=== PATIENT | female | born 2000 | race Caucasian/White ===

== ENCOUNTER 2019-11-28 18:58 | Emergency (ER) | payer SELFPAY ==
[~2019-11-28] VITALS: Ht 157.5 cm; Wt 45.5 kg
[2019-11-28 19:27] VITALS: BP 129/63; PULSE 77; TEMP 97.8
== END 2019-11-28 20:52 | disposition left against medical advice (07) ==
LOC: COL.ER 18:58
DX: K03.81 Cracked tooth (principal)

== ENCOUNTER 2020-03-29 20:38 | Emergency (ER) | payer SELFPAY ==
[~2020-03-29] VITALS: Ht 154.9 cm; Wt 44.5 kg
[2020-03-29 20:55] VITALS: TEMP 98.3
[2020-03-29] MEDS ORDERED: AMOXICILLIN 8751 TAB PO (21:15)
[2020-03-29] MEDS ORDERED: NORCO 325 MG-51 TAB PO (21:15)
[2020-03-29 21:40] VITALS: BP 112/70; PULSE 65
== END 2020-03-29 21:40 | disposition home or self-care (01) ==
LOC: COL.ER 20:38
DX: K02.9 Dental caries, unspecified (principal); J45.909 Unspecified asthma, uncomplicated

== ENCOUNTER 2020-05-09 16:09 | Emergency (ER) | payer SELFPAY ==
[~2020-05-09] VITALS: Ht 154.9 cm; Wt 44.5 kg
[~2020-05-09 16:09] MED LIST: AMOXICILLIN 8751 TAB PO; NORCO 325 MG-51 TAB PO
[2020-05-09 16:16] VITALS: TEMP 98.9
[2020-05-09 16:38] LABS: COLLECTION METHOD CLEAN CATCH
[2020-05-09 16:43] LABS: PH 8 (5-8); SQUAMOUS EPITHELIAL 0-2 /hpf; URINE APPEARANCE Clear; URINE BACTERIA None Seen /hpf; URINE BILIRUBIN Negative (NEGATIVE); URINE BLOOD Negative (NEGATIVE); URINE COLOR Straw; URINE GLUCOSE Negative (NEGATIVE); URINE KETONE Negative (NEGATIVE); URINE LEUKOCYTE ESTERASE Negative (NEGATIVE); URINE NITRATE Negative (NEGATIVE); URINE PROTEIN(semi-quant) Negative (NEGATIVE); URINE RBC 0-2 /hpf; URINE UROBILINOGEN Negative (NEGATIVE)
[2020-05-09 17:23] LABS: BASO # 0.1 (0.0-0.2); BASO % 0.8 % (0.0-2.0); EOS # 0.1 (0.0-0.7); EOS % 1.2 % (0-4.0); HEMATOCRIT 41.6 % (37.0-47.0); HEMOGLOBIN 14.5 g/dl (12.5-16.0); LYMPH # 2.2 (1.2-3.4); LYMPH % 24.2 % (20.0-51.0); MEAN CELL VOLUME 86 fl (80.0-100.0); MEAN CORPUSCULAR HEMOGLOBIN 30 pg (27.0-31.0); MEAN CORPUSCULAR HGB CONC 35 g/dl (33.0-37.0); MEAN PLATELET VOLUME 9.4 fl (7.4-10.4); MONO # 0.7 (0.1-0.6); MONO % 7.6 % (1.7-9.3); PLATELET COUNT 232 K/mm3 (130-400); RED BLOOD COUNT 4.83 M/mm3 (4.10-5.30); REDCELL DISTRIBUTION WIDTH-CV 13.2 % (11.5-14.5)
[2020-05-09 17:39] LABS: ALANINE AMINOTRANSFERASE 23 U/L (4-34); ALKALINE PHOSPHATASE 70 U/L (50-136); ANION GAP 11 mmol/L (7-16); AST,SGOT 36 U/L (15-37); BILIRUBIN,TOTAL 0.9 mg/dL (0.0-1.0); BLOOD UREA NITROGEN 10 mg/dL (7-17); CARBON DIOXIDE 27 mmol/L (22-30); CHLORIDE 102 mmol/L (98-107); CREATININE, serum 0.89 (0.52-1.25); GLUCOSE 96 mg/dL (74-106); LIPASE 22 U/L (23-300); POTASSIUM 3.8 mmol/L (3.4-5.0); SODIUM 139 mmol/L (137-145); TOTAL PROTEIN 8.6 gm/dL (6.4-8.2)
[2020-05-09 17:42] LABS: C-REACTIVE PROTEIN < 0.5 mg/dL (0.0-0.9)
[2020-05-09 19:45] VITALS: BP 109/69; PULSE 58
[2020-05-09] MEDS ORDERED: ZITHROMAX500 M2 PO (21:04)
== END 2020-05-09 19:45 | disposition home or self-care (01) ==
LOC: COL.ER 16:09
PROVIDERS: Emergency Medicine; Nurse Practitioner Primary Care
DX: A74.9 Chlamydial infection, unspecified (principal); R10.9 Unspecified abdominal pain; Z32.02 Encounter for pregnancy test, result negative; Z83.79 Family history of other diseases of the digestive system; Z80.41 Family history of malignant neoplasm of ovary; Z84.1 Family history of disorders of kidney and ureter; Z88.0 Allergy status to penicillin
CPT/HCPCS: J1885; J7030; Q9967

== ENCOUNTER 2020-07-16 11:25 | Emergency (ER) | payer MEDICAID ==
[~2020-07-16] VITALS: Ht 154.9 cm; Wt 45.0 kg
[~2020-07-16 11:25] MED LIST changes: +CEPHALEXIN500 M1 PO; +FLAGYL500 MG PO; +ZITHROMAX500 M2 PO
[2020-07-16 12:05] LABS: COLLECTION METHOD CLEAN CATCH
[2020-07-16 12:16] LABS: MUCOUS Present /lpf; PH 6 (5-8); URINE APPEARANCE Hazy; URINE BACTERIA None Seen /hpf; URINE BILIRUBIN Negative (NEGATIVE); URINE BLOOD Negative (NEGATIVE); URINE COLOR Yellow; URINE GLUCOSE Negative (NEGATIVE); URINE KETONE Trace (NEGATIVE); URINE LEUKOCYTE ESTERASE 3+ (NEGATIVE); URINE NITRATE Negative (NEGATIVE); URINE PROTEIN(semi-quant) Negative (NEGATIVE); URINE UROBILINOGEN Negative (NEGATIVE)
[2020-07-16 12:19] LABS: BASO % 0.5 % (0.0-2.0); EOS # 0.1 (0.0-0.7); EOS % 0.6 % (0-4.0); GRAN # 5.8 (1.4-6.5); GRAN % 73.1 % (42.2-75.2); HEMATOCRIT 38.7 % (37.0-47.0); HEMOGLOBIN 13.7 g/dl (12.5-16.0); LYMPH # 1.4 (1.2-3.4); LYMPH % 17.9 % (20.0-51.0); MEAN CELL VOLUME 85 fl (80.0-100.0); MEAN CORPUSCULAR HEMOGLOBIN 30 pg (27.0-31.0); MEAN CORPUSCULAR HGB CONC 35 g/dl (33.0-37.0); MEAN PLATELET VOLUME 9.3 fl (7.4-10.4); MONO # 0.6 (0.1-0.6); MONO % 7.6 % (1.7-9.3); PLATELET COUNT 202 K/mm3 (130-400); RED BLOOD COUNT 4.56 M/mm3 (4.10-5.30); REDCELL DISTRIBUTION WIDTH-CV 12.4 % (11.5-14.5)
[2020-07-16 12:34] LABS: ALBUMIN 4.5 gm/dL (3.5-5.0); BILIRUBIN,TOTAL 0.5 mg/dL (0.0-1.0); CALCIUM 10.3 mg/dL (8.4-10.2); CREATININE, serum 0.75 (0.52-1.25); POTASSIUM 4.1 mmol/L (3.4-5.0); TOTAL PROTEIN 7.2 gm/dL (6.4-8.2)
[2020-07-16 14:08] LABS: COLLECTION METHOD CLEAN CATCH
[2020-07-16 14:16] LABS: MUCOUS Present /lpf; PH 5 (5-8); SQUAMOUS EPITHELIAL 0-2 /hpf; URINE APPEARANCE Clear; URINE BACTERIA None Seen /hpf; URINE BILIRUBIN Negative (NEGATIVE); URINE BLOOD Negative (NEGATIVE); URINE COLOR Yellow; URINE GLUCOSE Negative (NEGATIVE); URINE KETONE 2+ (NEGATIVE); URINE LEUKOCYTE ESTERASE Trace (NEGATIVE); URINE NITRATE Negative (NEGATIVE); URINE PROTEIN(semi-quant) Negative (NEGATIVE); URINE RBC 0-2 /hpf; URINE UROBILINOGEN Negative (NEGATIVE)
[2020-07-16] MEDS ORDERED: CLOTRIMAZOLE 32% VG (15:08)
[2020-07-16] MEDS ORDERED: CLEOCIN HCL300 MG PO (15:08)
[2020-07-16 15:14] VITALS: BP 110/62; PULSE 76; TEMP 98.2
== END 2020-07-16 15:07 | disposition home or self-care (01) ==
LOC: COL.ER 11:25
PROVIDERS: Emergency Medicine; Physician Assistant
DX: O26.891 Other specified pregnancy related conditions, first trimester (principal); O23.591 Infection of other part of genital tract in pregnancy, first trimester; R10.2 Pelvic and perineal pain; B37.3 Candidiasis of vulva and vagina; Z3A.01 Less than 8 weeks gestation of pregnancy; Z88.0 Allergy status to penicillin

== ENCOUNTER 2020-08-16 20:58 | Emergency (ER) | payer MEDICAID ==
[~2020-08-16] VITALS: Ht 154.9 cm; Wt 40.9 kg
[~2020-08-16 20:58] MED LIST changes: +CLEOCIN HCL300 MG PO; +CLOTRIMAZOLE 32% VG
[2020-08-16 21:01] VITALS: BP 119/79; TEMP 98.4
[2020-08-16 21:24] LABS: BASO % 0.4 % (0.0-2.0); EOS # 0.1 (0.0-0.7); EOS % 0.9 % (0-4.0); GRAN # 6.2 (1.4-6.5); GRAN % 67.3 % (42.2-75.2); HEMOGLOBIN 13.5 g/dl (12.5-16.0); LYMPH # 2.1 (1.2-3.4); LYMPH % 22.5 % (20.0-51.0); MEAN CELL VOLUME 84 fl (80.0-100.0); MEAN CORPUSCULAR HEMOGLOBIN 30 pg (27.0-31.0); MEAN CORPUSCULAR HGB CONC 36 g/dl (33.0-37.0); MEAN PLATELET VOLUME 9.1 fl (7.4-10.4); MONO # 0.8 (0.1-0.6); MONO % 8.6 % (1.7-9.3); PLATELET COUNT 203 K/mm3 (130-400); RED BLOOD COUNT 4.51 M/mm3 (4.10-5.30); REDCELL DISTRIBUTION WIDTH-CV 12.5 % (11.5-14.5)
[2020-08-16 21:35] LABS: ALBUMIN 4.7 gm/dL (3.5-5.0); BILIRUBIN,TOTAL 0.7 mg/dL (0.0-1.0); CALCIUM 9.9 mg/dL (8.4-10.2); CREATININE, serum 0.78 (0.52-1.25); POTASSIUM 3.5 mmol/L (3.4-5.0); TOTAL PROTEIN 7.4 gm/dL (6.4-8.2)
[2020-08-16 23:01] LABS: COLLECTION METHOD CLEAN CATCH
[2020-08-16 23:16] LABS: MUCOUS Present /lpf; PH 5 (5-8); URINE APPEARANCE Hazy; URINE BACTERIA Rare /hpf; URINE BILIRUBIN Negative (NEGATIVE); URINE BLOOD Negative (NEGATIVE); URINE COLOR Amber; URINE GLUCOSE Negative (NEGATIVE); URINE KETONE 2+ (NEGATIVE); URINE LEUKOCYTE ESTERASE Trace (NEGATIVE); URINE NITRATE Negative (NEGATIVE); URINE PROTEIN(semi-quant) Negative (NEGATIVE); URINE RBC 0-2 /hpf
[2020-08-16] MEDS ORDERED: CEFTIN 250250 MG/TAB PO (23:52)
[2020-08-17 00:01] VITALS: PULSE 77
== END 2020-08-17 00:01 | disposition home or self-care (01) ==
LOC: COL.ER 20:58
PROVIDERS: Nurse Practitioner
DX: O03.9 Complete or unspecified spontaneous abortion without complication (principal); O26.891 Other specified pregnancy related conditions, first trimester; R10.2 Pelvic and perineal pain; Z3A.10 10 weeks gestation of pregnancy; Z88.0 Allergy status to penicillin
CPT/HCPCS: J2270; J2550; J7030

== ENCOUNTER 2020-09-13 20:31 | Emergency (ER) | payer MEDICAID ==
[~2020-09-13] VITALS: Ht 152.4 cm; Wt 40.9 kg
[~2020-09-13 20:31] MED LIST changes: +CEFTIN 250250 MG/TAB PO
[2020-09-13 21:10] VITALS: TEMP 98.6
[2020-09-13 22:31] LABS: BASO % 0.2 % (0.0-2.0); EOS # 0.2 (0.0-0.7); GRAN # 5.7 (1.4-6.5); GRAN % 63.7 % (42.2-75.2); HEMOGLOBIN 13.7 g/dl (12.5-16.0); LYMPH # 2.2 (1.2-3.4); LYMPH % 24.7 % (20.0-51.0); MEAN CELL VOLUME 85 fl (80.0-100.0); MEAN CORPUSCULAR HEMOGLOBIN 30 pg (27.0-31.0); MEAN CORPUSCULAR HGB CONC 35 g/dl (33.0-37.0); MONO # 0.8 (0.1-0.6); MONO % 9.2 % (1.7-9.3); PLATELET COUNT 222 K/mm3 (130-400); REDCELL DISTRIBUTION WIDTH-CV 13.6 % (11.5-14.5)
[2020-09-13 22:53] LABS: ALBUMIN 4.5 gm/dL (3.5-5.0); BILIRUBIN,TOTAL 0.6 mg/dL (0.0-1.0); CALCIUM 9.6 mg/dL (8.4-10.2); CREATININE, serum 0.8 (0.52-1.25); POTASSIUM 3.9 mmol/L (3.4-5.0); TOTAL PROTEIN 7.4 gm/dL (6.4-8.2)
[2020-09-14 02:50] VITALS: BP 114/73; PULSE 64
== END 2020-09-14 02:50 | disposition home or self-care (01) ==
LOC: COL.ER 20:31
PROVIDERS: Nurse Practitioner Primary Care
DX: O20.0 Threatened abortion (principal); Z3A.00 Weeks of gestation of pregnancy not specified; Z88.0 Allergy status to penicillin

== ENCOUNTER 2020-10-13 19:09 | Emergency (ER) | payer MEDICAID ==
[~2020-10-13] VITALS: Ht 154.9 cm; Wt 40.9 kg
[2020-10-13 19:22] VITALS: TEMP 98
[2020-10-13 21:00] LABS: COLLECTION METHOD CLEAN CATCH
[2020-10-13 21:07] LABS: PH 6 (5-8); URINE APPEARANCE Hazy; URINE BACTERIA Rare /hpf; URINE BILIRUBIN Negative (NEGATIVE); URINE BLOOD Negative (NEGATIVE); URINE COLOR Straw; URINE GLUCOSE Negative (NEGATIVE); URINE KETONE Negative (NEGATIVE); URINE LEUKOCYTE ESTERASE 1+ (NEGATIVE); URINE NITRATE Negative (NEGATIVE); URINE PROTEIN(semi-quant) Negative (NEGATIVE); URINE RBC 0-2 /hpf; URINE UROBILINOGEN Negative (NEGATIVE)
[2020-10-13 21:59] LABS: BASO # 0.1 (0.0-0.2); BASO % 0.6 % (0.0-2.0); EOS # 0.1 (0.0-0.7); EOS % 1.8 % (0-4.0); GRAN # 4.3 (1.4-6.5); GRAN % 55.5 % (42.2-75.2); HEMATOCRIT 37.5 % (37.0-47.0); HEMOGLOBIN 13.3 g/dl (12.5-16.0); LYMPH # 2.6 (1.2-3.4); LYMPH % 32.8 % (20.0-51.0); MEAN CELL VOLUME 86 fl (80.0-100.0); MEAN CORPUSCULAR HEMOGLOBIN 30 pg (27.0-31.0); MEAN CORPUSCULAR HGB CONC 36 g/dl (33.0-37.0); MEAN PLATELET VOLUME 9.4 fl (7.4-10.4); MONO # 0.7 (0.1-0.6); PLATELET COUNT 207 K/mm3 (130-400); RED BLOOD COUNT 4.38 M/mm3 (4.10-5.30); REDCELL DISTRIBUTION WIDTH-CV 13.1 % (11.5-14.5)
[2020-10-13 22:20] LABS: ALANINE AMINOTRANSFERASE 10 U/L (4-34); ALBUMIN 4.5 gm/dL (3.5-5.0); ALKALINE PHOSPHATASE 55 U/L (50-136); ANION GAP 8 mmol/L (7-16); AST,SGOT 21 U/L (15-37); BILIRUBIN,TOTAL 0.4 mg/dL (0.0-1.0); BLOOD UREA NITROGEN 14 mg/dL (7-17); CALCIUM 9.7 mg/dL (8.4-10.2); CARBON DIOXIDE 24 mmol/L (22-30); CHLORIDE 105 mmol/L (98-107); GLUCOSE 99 mg/dL (74-106); SODIUM 137 mmol/L (137-145); TOTAL PROTEIN 7.6 gm/dL (6.4-8.2)
[2020-10-13 22:21] LABS: C-REACTIVE PROTEIN < 0.5 mg/dL (0.0-0.9)
[2020-10-13 23:34] VITALS: BP 115/62; PULSE 61
== END 2020-10-13 23:30 | disposition home or self-care (01) ==
LOC: COL.ER 19:09
PROVIDERS: Nurse Practitioner
DX: R10.2 Pelvic and perineal pain (principal); R10.32 Left lower quadrant pain; F17.200 Nicotine dependence, unspecified, uncomplicated; Z32.02 Encounter for pregnancy test, result negative; Z88.0 Allergy status to penicillin
CPT/HCPCS: J1885

== ENCOUNTER 2021-01-19 08:54 | Emergency (ER) | payer MEDICAID ==
[~2021-01-19] VITALS: Ht 154.9 cm; Wt 40.5 kg
[2021-01-19 09:11] VITALS: BP 128/79; TEMP 98.5
[2021-01-19 09:36] LABS: COLLECTION METHOD CLEAN CATCH
[2021-01-19 09:53] LABS: PH 7 (5-8); SQUAMOUS EPITHELIAL 0-2 /hpf; URINE APPEARANCE Clear; URINE BACTERIA None Seen /hpf; URINE BILIRUBIN Negative (NEGATIVE); URINE BLOOD Negative (NEGATIVE); URINE COLOR Yellow; URINE GLUCOSE Negative (NEGATIVE); URINE KETONE Negative (NEGATIVE); URINE LEUKOCYTE ESTERASE Negative (NEGATIVE); URINE NITRATE Negative (NEGATIVE); URINE PROTEIN(semi-quant) Negative (NEGATIVE); URINE RBC 0-2 /hpf; URINE UROBILINOGEN Negative (NEGATIVE)
[2021-01-19 11:31] VITALS: PULSE 82
[2021-07-20] MEDS ORDERED: MACROBID 1100 MG/CAP PO (13:54)
[2021-07-23] MEDS ORDERED: SEPTRA DS 8001 TAB PO (06:45)
== END 2021-01-19 11:31 | disposition home or self-care (01) ==
LOC: COL.ER 08:54
PROVIDERS: Emergency Medicine
DX: R10.32 Left lower quadrant pain (principal); Z88.0 Allergy status to penicillin

== ENCOUNTER → 2021-02-07 | Outpatient (CLI) | payer MEDICAID ==
[~2021-02-07] MED LIST changes: +CEFTIN500 MG PO; +MACROBID 1100 MG/CAP PO; +PREDNISONE20 MG PO; +PRENATAL TABLET PO; +PROMETRIUM200 M1 PO; +SEPTRA DS 8001 TAB PO
== END ==
LOC: COL.RAD 10:11
DX: N26.1 Atrophy of kidney (terminal) (principal)

== ENCOUNTER 2021-03-06 09:32 | Emergency (ER) | payer MEDICAID ==
[~2021-03-06] VITALS: Ht 152.4 cm; Wt 40.9 kg
[~2021-03-06 09:32] MED LIST changes: -CEFTIN500 MG PO; -MACROBID 1100 MG/CAP PO; -PREDNISONE20 MG PO; -PRENATAL TABLET PO; -PROMETRIUM200 M1 PO; -SEPTRA DS 8001 TAB PO
[2021-03-06 09:47] VITALS: TEMP 98.9
[2021-03-06 11:38] LABS: STREP SCREEN NEGATIVE
[2021-03-06] MEDS ORDERED: PREDNISONE20 MG PO (11:51)
[2021-03-06 11:55] VITALS: BP 126/76; PULSE 91
[2021-07-20] MEDS ORDERED: MACROBID 1100 MG/CAP PO (13:54)
[2021-07-23] MEDS ORDERED: SEPTRA DS 8001 TAB PO (06:45)
== END 2021-03-06 12:00 | disposition home or self-care (01) ==
LOC: COL.ER 09:32
PROVIDERS: Nurse Practitioner
DX: J06.9 Acute upper respiratory infection, unspecified (principal); J45.909 Unspecified asthma, uncomplicated; F17.210 Nicotine dependence, cigarettes, uncomplicated; Z20.822 Contact with and (suspected) exposure to COVID-19
CPT/HCPCS: J7512

== ENCOUNTER 2021-03-18 14:59 | Emergency (ER) | payer MEDICAID ==
[~2021-03-18] VITALS: Ht 152.4 cm; Wt 39.5 kg
[~2021-03-18 14:59] MED LIST changes: +PREDNISONE20 MG PO
[2021-03-18 15:29] VITALS: BP 106/71; PULSE 71; TEMP 98.1
[2021-07-20] MEDS ORDERED: MACROBID 1100 MG/CAP PO (13:54)
[2021-07-23] MEDS ORDERED: SEPTRA DS 8001 TAB PO (06:45)
== END 2021-03-18 16:44 | disposition left against medical advice (07) ==
LOC: COL.ER 14:59
DX: R51.9 Headache, unspecified (principal); M54.2 Cervicalgia; X58.XXXA Exposure to other specified factors, initial encounter; Y99.0 Civilian activity done for income or pay

== ENCOUNTER 2021-05-24 09:42 | Emergency (ER) | payer MEDICAID ==
[~2021-05-24] VITALS: Ht 152.4 cm; Wt 40.5 kg
[2021-05-24] MEDS ORDERED: PRENATAL TABLET PO (10:17)
[2021-05-24] MEDS ORDERED: PROMETRIUM200 M1 PO (10:17)
[2021-05-24 10:48] LABS: COLLECTION METHOD CLEAN CATCH
[2021-05-24 10:54] LABS: BASO % 0.1 % (0.0-2.0); EOS # 0.1 (0.0-0.7); EOS % 0.7 % (0-4.0); GRAN % 73.6 % (42.2-75.2); HEMOGLOBIN 12.7 g/dl (12.5-16.0); LYMPH # 1.1 (1.2-3.4); MEAN CELL VOLUME 84 fl (80.0-100.0); MEAN CORPUSCULAR HEMOGLOBIN 30 pg (27.0-31.0); MEAN CORPUSCULAR HGB CONC 36 g/dl (33.0-37.0); MEAN PLATELET VOLUME 9.2 fl (7.4-10.4); MONO # 0.7 (0.1-0.6); MONO % 9.5 % (1.7-9.3); PLATELET COUNT 192 K/mm3 (130-400); RED BLOOD COUNT 4.21 M/mm3 (4.10-5.30); REDCELL DISTRIBUTION WIDTH-CV 12.7 % (11.5-14.5)
[2021-05-24 10:56] LABS: HEMATOCRIT 35.4 % (37.0-47.0)
[2021-05-24 11:05] LABS: MUCOUS Present /lpf; PH 5 (5-8); URINE APPEARANCE Hazy; URINE BACTERIA Many /hpf; URINE BILIRUBIN Negative (NEGATIVE); URINE BLOOD Negative (NEGATIVE); URINE COLOR Yellow; URINE GLUCOSE Negative (NEGATIVE); URINE KETONE 1+ (NEGATIVE); URINE LEUKOCYTE ESTERASE 3+ (NEGATIVE); URINE NITRATE Negative (NEGATIVE); URINE PROTEIN(semi-quant) Negative (NEGATIVE); URINE UROBILINOGEN Negative (NEGATIVE)
[2021-05-24] MEDS ORDERED: CEPHALEXIN500 M1 PO (11:50)
[2021-05-24 12:35] VITALS: BP 100/53; PULSE 76
[2021-07-20] MEDS ORDERED: MACROBID 1100 MG/CAP PO (13:54)
[2021-07-23] MEDS ORDERED: SEPTRA DS 8001 TAB PO (06:45)
== END 2021-05-24 12:35 | disposition home or self-care (01) ==
LOC: COL.ER 09:42
PROVIDERS: Nurse Practitioner Primary Care
DX: O23.41 Unspecified infection of urinary tract in pregnancy, first trimester (principal); O99.511 Diseases of the respiratory system complicating pregnancy, first trimester; J45.909 Unspecified asthma, uncomplicated; Z3A.01 Less than 8 weeks gestation of pregnancy; Z87.891 Personal history of nicotine dependence
CPT/HCPCS: J7030

== ENCOUNTER 2021-06-01 11:20 | Emergency (ER) | payer MEDICAID ==
[~2021-06-01] VITALS: Ht 152.4 cm; Wt 40.0 kg
[~2021-06-01 11:20] MED LIST changes: +PRENATAL TABLET PO; +PROMETRIUM200 M1 PO
[2021-06-01 11:55] VITALS: BP 114/66; TEMP 97.5
[2021-06-01 12:50] VITALS: PULSE 102
[2021-07-20] MEDS ORDERED: MACROBID 1100 MG/CAP PO (13:54)
[2021-07-23] MEDS ORDERED: SEPTRA DS 8001 TAB PO (06:45)
== END 2021-06-01 12:51 | disposition home or self-care (01) ==
LOC: COL.ER 11:20
DX: O98.511 Other viral diseases complicating pregnancy, first trimester (principal); B34.9 Viral infection, unspecified; O99.511 Diseases of the respiratory system complicating pregnancy, first trimester; J45.909 Unspecified asthma, uncomplicated; Z20.822 Contact with and (suspected) exposure to COVID-19; Z3A.01 Less than 8 weeks gestation of pregnancy; Z87.891 Personal history of nicotine dependence

== ENCOUNTER 2021-06-23 08:14 | Emergency (ER) | payer MEDICAID ==
[~2021-06-23] VITALS: Ht 152.4 cm; Wt 40.5 kg
[2021-06-23 08:33] VITALS: TEMP 98.4
[2021-06-23 08:48] LABS: COLLECTION METHOD CLEAN CATCH
[2021-06-23 09:01] LABS: MUCOUS Present /lpf; PH 6 (5-8); SQUAMOUS EPITHELIAL 0-2 /hpf; URINE APPEARANCE Hazy; URINE BACTERIA None Seen /hpf; URINE BILIRUBIN Negative (NEGATIVE); URINE BLOOD Negative (NEGATIVE); URINE COLOR Yellow; URINE GLUCOSE Negative (NEGATIVE); URINE KETONE Negative (NEGATIVE); URINE LEUKOCYTE ESTERASE Trace (NEGATIVE); URINE NITRATE Negative (NEGATIVE); URINE PROTEIN(semi-quant) Negative (NEGATIVE); URINE UROBILINOGEN Negative (NEGATIVE)
[2021-06-23 09:12] LABS: BASO % 0.4 % (0.0-2.0); EOS # 0.2 K/mm3 (0.0-0.7); EOS % 2.3 % (0-4.0); GRAN # 5.3 K/mm3 (1.4-6.5); GRAN % 72.3 % (42.2-75.2); HEMOGLOBIN 12.8 g/dl (12.5-16.0); LYMPH # 1.2 K/mm3 (1.2-3.4); LYMPH % 16.3 % (20.0-51.0); MEAN CELL VOLUME 86 fl (80.0-100.0); MEAN CORPUSCULAR HEMOGLOBIN 30 pg (27.0-31.0); MEAN CORPUSCULAR HGB CONC 35 g/dl (33.0-37.0); MEAN PLATELET VOLUME 9.1 fl (7.4-10.4); MONO # 0.6 K/mm3 (0.1-0.6); MONO % 8.4 % (1.7-9.3); PLATELET COUNT 184 K/mm3 (130-400); RED BLOOD COUNT 4.26 M/mm3 (4.10-5.30); REDCELL DISTRIBUTION WIDTH-CV 13.2 % (11.5-14.5)
[2021-06-23 09:13] LABS: HEMATOCRIT 36.5 % (37.0-47.0)
[2021-06-23 10:00] LABS: ALANINE AMINOTRANSFERASE 9 U/L (0-55); ALBUMIN 3.5 gm/dL (3.5-5.0); ALKALINE PHOSPHATASE 35 U/L (0-750); ANION GAP 6 mmol/L (7-16); AST,SGOT 15 U/L (5-34); BILIRUBIN,TOTAL 0.4 mg/dL (0.2-1.2); BLOOD UREA NITROGEN 12 mg/dL (7-19); CALCIUM 9.8 mg/dL (8.4-10.2); CARBON DIOXIDE 23 mmol/L (22-29); CHLORIDE 107 mmol/L (98-107); CREATININE, serum 0.71 mg/dL (0.57-1.11); GLUCOSE 81 mg/dL (70-99); LIPASE < 10 U/L (8-78); POTASSIUM 3.7 mmol/L (3.5-4.5); SODIUM 136 mmol/L (136-145); TOTAL PROTEIN 6.3 gm/dL (6.2-8.1)
[2021-06-23] MEDS ORDERED: CLOTRIMAZOLE 32% VG (11:46)
[2021-06-23 12:07] VITALS: BP 112/61; PULSE 62
[2021-07-20] MEDS ORDERED: MACROBID 1100 MG/CAP PO (13:54)
[2021-07-23] MEDS ORDERED: SEPTRA DS 8001 TAB PO (06:45)
== END 2021-06-23 12:14 | disposition home or self-care (01) ==
LOC: COL.ER 08:14
PROVIDERS: Emergency Medicine
DX: O98.811 Other maternal infectious and parasitic diseases complicating pregnancy, first trimester (principal); B37.9 Candidiasis, unspecified; Z3A.11 11 weeks gestation of pregnancy

== ENCOUNTER 2021-07-18 10:50 | Emergency (ER) | payer MEDICAID ==
[~2021-07-18] VITALS: Ht 152.4 cm; Wt 42.7 kg
[2021-07-18 11:05] VITALS: TEMP 98.1
[2021-07-18 11:15] LABS: COLLECTION METHOD CLEAN CATCH
[2021-07-18 11:29] LABS: MUCOUS Present /lpf; PH 6 (5-8); SQUAMOUS EPITHELIAL 0-2 /hpf; URINE APPEARANCE Clear; URINE BACTERIA None Seen /hpf; URINE BILIRUBIN Negative (NEGATIVE); URINE BLOOD Negative (NEGATIVE); URINE COLOR Yellow; URINE GLUCOSE Negative (NEGATIVE); URINE KETONE Trace (NEGATIVE); URINE LEUKOCYTE ESTERASE Trace (NEGATIVE); URINE NITRATE Negative (NEGATIVE); URINE PROTEIN(semi-quant) Negative (NEGATIVE); URINE RBC 0-2 /hpf; URINE UROBILINOGEN Negative (NEGATIVE)
[2021-07-18 11:51] LABS: BASO % 0.3 % (0.0-2.0); EOS # 0.1 K/mm3 (0.0-0.7); EOS % 0.9 % (0-4.0); GRAN # 6.8 K/mm3 (1.4-6.5); GRAN % 73.7 % (42.2-75.2); HEMOGLOBIN 12.5 g/dl (12.5-16.0); LYMPH # 1.6 K/mm3 (1.2-3.4); LYMPH % 17.8 % (20.0-51.0); MEAN CELL VOLUME 85 fl (80.0-100.0); MEAN CORPUSCULAR HEMOGLOBIN 30 pg (27.0-31.0); MEAN CORPUSCULAR HGB CONC 35 g/dl (33.0-37.0); MEAN PLATELET VOLUME 9.4 fl (7.4-10.4); MONO # 0.6 K/mm3 (0.1-0.6); PLATELET COUNT 176 K/mm3 (130-400); RED BLOOD COUNT 4.17 M/mm3 (4.10-5.30); REDCELL DISTRIBUTION WIDTH-CV 13.2 % (11.5-14.5)
[2021-07-18 11:52] LABS: HEMATOCRIT 35.5 % (37.0-47.0)
[2021-07-18 11:56] LABS: ALBUMIN 3.3 gm/dL (3.5-5.0); BILIRUBIN,TOTAL 0.4 mg/dL (0.2-1.2); CALCIUM 9.8 mg/dL (8.4-10.2); CREATININE, serum 0.74 mg/dL (0.57-1.11); POTASSIUM 3.7 mmol/L (3.5-4.5); TOTAL PROTEIN 5.8 gm/dL (6.2-8.1)
[2021-07-18] MEDS ORDERED: CEFTIN500 MG PO (12:23)
[2021-07-18 12:34] VITALS: BP 100/70; PULSE 71
[2021-07-20] MEDS ORDERED: MACROBID 1100 MG/CAP PO (13:54)
[2021-07-23] MEDS ORDERED: SEPTRA DS 8001 TAB PO (06:45)
== END 2021-07-18 12:35 | disposition home or self-care (01) ==
LOC: COL.ER 10:50
PROVIDERS: Physician Assistant
DX: O23.42 Unspecified infection of urinary tract in pregnancy, second trimester (principal); N39.0 Urinary tract infection, site not specified; Z3A.15 15 weeks gestation of pregnancy
CPT/HCPCS: J0696

== ENCOUNTER 2021-07-27 12:29 | Emergency (ER) | payer MEDICAID ==
[~2021-07-27] VITALS: Ht 152.4 cm; Wt 43.6 kg
[~2021-07-27 12:29] MED LIST changes: +CEFTIN500 MG PO; +MACROBID 1100 MG/CAP PO; +SEPTRA DS 8001 TAB PO
[2021-07-27 13:20] LABS: COLLECTION METHOD CLEAN CATCH
[2021-07-27 13:34] LABS: BASO % 0.3 % (0.0-2.0); EOS # 0.1 K/mm3 (0.0-0.7); GRAN # 7.3 K/mm3 (1.4-6.5); GRAN % 76.7 % (42.2-75.2); HEMOGLOBIN 11.8 g/dl (12.5-16.0); LYMPH # 1.5 K/mm3 (1.2-3.4); LYMPH % 15.3 % (20.0-51.0); MEAN CELL VOLUME 84 fl (80.0-100.0); MEAN CORPUSCULAR HEMOGLOBIN 30 pg (27.0-31.0); MEAN CORPUSCULAR HGB CONC 36 g/dl (33.0-37.0); MEAN PLATELET VOLUME 9.2 fl (7.4-10.4); MONO # 0.6 K/mm3 (0.1-0.6); MONO % 6.5 % (1.7-9.3); PLATELET COUNT 190 K/mm3 (130-400); RED BLOOD COUNT 3.92 M/mm3 (4.10-5.30); REDCELL DISTRIBUTION WIDTH-CV 13.1 % (11.5-14.5)
[2021-07-27 13:40] LABS: AMORPHOUS CRYSTAL Present /uL; BUDDING YEAST Present /hpf; MUCOUS Present /lpf; PH 5 (5-8); URINE APPEARANCE Turbid; URINE BACTERIA Many /hpf; URINE BILIRUBIN Negative (NEGATIVE); URINE BLOOD Negative (NEGATIVE); URINE CALCIUM OXALATE CRYSTAL Present /hpf; URINE COLOR Yellow; URINE GLUCOSE Negative (NEGATIVE); URINE KETONE Trace (NEGATIVE); URINE LEUKOCYTE ESTERASE Negative (NEGATIVE); URINE NITRATE Negative (NEGATIVE); URINE PROTEIN(semi-quant) Negative (NEGATIVE); URINE RBC None Seen /hpf
[2021-07-27 13:54] LABS: ALBUMIN 3.2 gm/dL (3.5-5.0); BILIRUBIN,TOTAL 0.3 mg/dL (0.2-1.2); CALCIUM 9.6 mg/dL (8.4-10.2); CREATININE, serum 0.7 mg/dL (0.57-1.11); POTASSIUM 3.6 mmol/L (3.5-4.5); TOTAL PROTEIN 5.5 gm/dL (6.2-8.1)
[2021-07-27 17:30] VITALS: BP 103/54; PULSE 72; TEMP 98.6
== END 2021-07-27 17:30 | disposition home or self-care (01) ==
LOC: COL.ER 12:29
PROVIDERS: Nurse Practitioner Family
DX: O23.42 Unspecified infection of urinary tract in pregnancy, second trimester (principal); N39.0 Urinary tract infection, site not specified; B37.41 Candidal cystitis and urethritis; O26.832 Pregnancy related renal disease, second trimester; Q60.0 Renal agenesis, unilateral; Z3A.16 16 weeks gestation of pregnancy
CPT/HCPCS: J2405; J7030

== ENCOUNTER 2021-08-23 08:42 | Emergency (ER) | payer MEDICAID ==
[~2021-08-23] VITALS: Ht 152.4 cm; Wt 44.5 kg
[2021-08-23 08:58] VITALS: TEMP 98
[2021-08-23 09:41] LABS: COLLECTION METHOD CLEAN CATCH
[2021-08-23 09:44] LABS: BASO % 0.4 % (0.0-2.0); EOS # 0.1 K/mm3 (0.0-0.7); GRAN % 74.7 % (42.2-75.2); HEMOGLOBIN 11.6 g/dl (12.5-16.0); LYMPH # 1.4 K/mm3 (1.2-3.4); LYMPH % 17.9 % (20.0-51.0); MEAN CELL VOLUME 89 fl (80.0-100.0); MEAN CORPUSCULAR HEMOGLOBIN 30 pg (27.0-31.0); MEAN CORPUSCULAR HGB CONC 34 g/dl (33.0-37.0); MEAN PLATELET VOLUME 9.7 fl (7.4-10.4); MONO # 0.5 K/mm3 (0.1-0.6); MONO % 5.6 % (1.7-9.3); PLATELET COUNT 185 K/mm3 (130-400); RED BLOOD COUNT 3.83 M/mm3 (4.10-5.30)
[2021-08-23 09:48] LABS: PH 6 (5-8); SQUAMOUS EPITHELIAL 0-2 /hpf (0-10); URINE APPEARANCE Clear (CLEAR/HAZY); URINE BACTERIA None Seen (NONE SEEN); URINE BILIRUBIN Negative (NEGATIVE); URINE BLOOD Negative (NEGATIVE); URINE COLOR Yellow (YELLOW); URINE GLUCOSE Negative (NEGATIVE); URINE KETONE Negative (NEGATIVE); URINE LEUKOCYTE ESTERASE Negative (NEGATIVE); URINE NITRATE Negative (NEGATIVE); URINE PROTEIN(semi-quant) Negative (NEGATIVE); URINE RBC None Seen /hpf (0-2); URINE UROBILINOGEN Negative (NEGATIVE)
[2021-08-23 09:52] LABS: HEMATOCRIT 34.1 % (37.0-47.0)
[2021-08-23 10:13] LABS: ALBUMIN 3.2 gm/dL (3.5-5.0); BILIRUBIN,TOTAL 0.5 mg/dL (0.2-1.2); CALCIUM 9.4 mg/dL (8.4-10.2); CREATININE, serum 0.76 mg/dL (0.57-1.11); POTASSIUM 3.7 mmol/L (3.5-4.5); TOTAL PROTEIN 5.9 gm/dL (6.2-8.1)
[2021-08-23 16:14] VITALS: BP 99/52; PULSE 67
== END 2021-08-23 10:57 | disposition home or self-care (01) ==
LOC: COL.ER 08:42
PROVIDERS: Personal Emergency Response Attendant
DX: O26.891 Other specified pregnancy related conditions, first trimester (principal); R10.32 Left lower quadrant pain; O26.831 Pregnancy related renal disease, first trimester; Q60.0 Renal agenesis, unilateral; Z87.891 Personal history of nicotine dependence; Z3A.00 Weeks of gestation of pregnancy not specified
CPT/HCPCS: J2270; J2405; J7030

== ENCOUNTER 2021-08-24 01:45 | Outpatient (CLI) | payer MEDICAID ==
[~2021-08-24] VITALS: Ht 152.4 cm; Wt 45.0 kg
[2021-08-24 02:30] VITALS: BP 95/53; PULSE 62; TEMP 98
--- NOTE | 2021-08-24 03:19 | NUR ---
21 YO AT 20.2 WEEKS GESTATION TO LR5 WITH C/O ABD PAIN SINCE SUNDAY EVENING THAT HAS BECOME WORSE TONIGHT AT 2330. PT WAS SEEN IN ER YESTERDAY FOR SAME ABD PAIN AND WAS GIVEN PAIN MEDICINE AND SENT HOME. PT REPORTS ABD PAIN THROUGHOUT ENTIRE OFF AND ON. PT TENDER TO TOUCH ON ABD.
--- NOTE | 2021-08-24 03:29 | NUR ---
DR STILL IN TO SEE PT
--- NOTE | 2021-08-24 03:32 | NUR ---
EFM OFF, DR STILL DISMISSES PT, TO FOLLOW UP WITH DORITAO LATER TODAY
--- NOTE | 2021-08-24 03:34 | NUR ---
0310 - DISCHARGE INSTRUCTIONS GIVEN, VOICES GOOD UNDERSTANDING
== END 2021-08-24 03:15 | disposition home or self-care (01) ==
LOC: LDRO 01:45 → LDR 02:32 → LDRO 03:15
DX: O26.892 Other specified pregnancy related conditions, second trimester (principal); R10.9 Unspecified abdominal pain; Z87.891 Personal history of nicotine dependence; Z3A.20 20 weeks gestation of pregnancy
CPT/HCPCS: OP

== ENCOUNTER → 2021-08-24 | Outpatient (CLI) | payer MEDICAID | LOC: COL.RAD 12:27 | DX: N26.1 Atrophy of kidney (terminal) (principal) ==

== ENCOUNTER 2021-09-04 18:38 | Outpatient (CLI) | payer MEDICAID ==
[~2021-09-04] VITALS: Ht 152.4 cm; Wt 44.5 kg
--- NOTE | 2021-09-04 19:01 | NUR ---
PT AMBULATED UP TO UNIT AND SHOWN TO ROOM LDR3 BY THIS RN. PT IS , 22.0 WEEKS, PT REPORTS HAVING INCREASED URINATION FOR LAST 1-2HR AND GREEN YELLOWISH DISCHARGE. PT DENIES ITCHING AND BURNING. PT DENIES ABDOMINAL PAIN OR FLANK PAIN. PT DENIES NAUSEA, VOMITING, CHILLS OR FEVER. PT DENIES SROM, CONTRACTIONS, VAGINAL BLEEDING OR DECREASED MOVEMENT.
[2021-09-04 19:05] VITALS: BP 108/53; PULSE 83; TEMP 98
--- NOTE | 2021-09-04 19:05 | NUR ---
FHTS PER DOPPLER- 145
--- NOTE | 2021-09-04 19:45 | NUR ---
UA COLLECTED BY PATIENT AT THIS TIME AND RN COLLECTED BACTERIAL VAGINOSIS SWAB. PT RESTING IN BED, NO SIGNS OF DISTRESS. PT DENIES FURTHER NEEDS AT THIS TIME
[2021-09-04 19:53] LABS: COLLECTION METHOD CLEAN CATCH
[2021-09-04 19:59] LABS: MUCOUS Present (NOT PRESENT); PH 6 (5-8); URINE APPEARANCE Hazy (CLEAR/HAZY); URINE BACTERIA Rare (NONE SEEN); URINE BILIRUBIN Negative (NEGATIVE); URINE BLOOD Negative (NEGATIVE); URINE COLOR Yellow (YELLOW); URINE GLUCOSE Negative (NEGATIVE); URINE KETONE Negative (NEGATIVE); URINE LEUKOCYTE ESTERASE Negative (NEGATIVE); URINE NITRATE Negative (NEGATIVE); URINE PROTEIN(semi-quant) Negative (NEGATIVE); URINE RBC 0-2 /hpf (0-2); URINE WBC 0-2 /hpf (0-2)
--- NOTE | 2021-09-04 20:40 | NUR ---
DISCHARGE INSTRUCTIONS REVIEWED WITH PATIENT AND PATIENT VERBALIZED AN UNDERSTANDING. RN INFORMED PATIENT THAT DR. ALMEIDA WANTS HER TO CALL THE OFFICE IN THE MORNING TO SCHEDULE A FOLLOW UP APPOINTMENT. PT VERBALIZED AN UNDERSTANDING AND DENIES FURTHER QUESTIONS. PT GIVEN COPY OF DISCHARGE INSTRUCTIONS
--- NOTE | 2021-09-04 20:45 | NUR ---
PT AMBULATED OFF UNIT AT THIS TIME IN STABLE, UNDELIVERED CONDITION. PT AMBULATED OFF UNIT AT THIS TIME
== END 2021-09-04 20:45 | disposition home or self-care (01) ==
LOC: LDRO 18:38 → COL.ER 18:38 → EDSTATUS 18:58 → LDR 19:01 → LDRO 20:45
PROVIDERS: Obstetrics & Gynecology
DX: O26.892 Other specified pregnancy related conditions, second trimester (principal); N89.8 Other specified noninflammatory disorders of vagina; R35.0 Frequency of micturition; Z3A.22 22 weeks gestation of pregnancy
CPT/HCPCS: OP

== ENCOUNTER 2021-09-12 10:22 | Outpatient (CLI) | payer MEDICAID ==
[~2021-09-12] VITALS: Ht 154.9 cm; Wt 45.5 kg
--- NOTE | 2021-09-12 10:30 | NUR ---
Patient ambulatory to LR5 with significant other, changed into gown, FHR/TOCO monitors placed. Patient states she was here last week with similar UTI symptoms. "Burning when I pee and peeing every three minutes". Plan of care discussed. SVE per B.Cringan closed/thick/high and amniotest negative. White discharge noted on glove. Dr. Rasmussen notified. See physician notification. Patient given discharge instructions and verbalizes understanding. 1115: Patient ambulates off unit with spouse.
[2021-09-12 11:06] VITALS: BP 108/57; PULSE 75; TEMP 98.1
== END 2021-09-12 11:15 | disposition home or self-care (01) ==
LOC: LDRO 10:22
DX: O42.912 Preterm premature rupture of membranes, unspecified as to length of time between rupture and onset of labor, second trimester (principal); Z3A.23 23 weeks gestation of pregnancy

== ENCOUNTER 2021-10-20 11:45 | Emergency (ER) | payer MEDICAID ==
[~2021-10-20] VITALS: Ht 152.4 cm; Wt 49.1 kg
[2021-10-20 11:58] VITALS: TEMP 98.5
[2021-10-20 13:02] LABS: ALBUMIN 3.1 gm/dL (3.5-5.0); BILIRUBIN,TOTAL 0.4 mg/dL (0.2-1.2); CALCIUM 8.7 mg/dL (8.4-10.2); CREATININE, serum 0.8 mg/dL (0.57-1.11); POTASSIUM 3.8 mmol/L (3.5-4.5); TOTAL PROTEIN 6.9 gm/dL (6.2-8.1)
[2021-10-20 13:04] LABS: HEMOGLOBIN 11.4 g/dl (12.5-16.0); MEAN CELL VOLUME 86 fl (80.0-100.0); MEAN CORPUSCULAR HEMOGLOBIN 30 pg (27-31); MEAN CORPUSCULAR HGB CONC 35 g/dl (33.0-37.0); MEAN PLATELET VOLUME 8.9 fl (7.4-10.4); PLATELET COUNT 149 K/mm3 (130-400); RED BLOOD COUNT 3.76 M/mm3 (4.10-5.30); REDCELL DISTRIBUTION WIDTH-CV 13.9 % (11.5-14.5)
[2021-10-20 13:06] LABS: HEMATOCRIT 32.4 % (37.0-47.0)
[2021-10-20 13:26] LABS: BAND 6 % (0-10); BASOPHIL 1 % (0-2); LYMPHOCYTE 6 % (20.0-51.0); NEUTROPHILS 69 % (42.0-75.2)
[2021-10-20 13:29] LABS: PLATELET ESTIMATE NORMAL (NORMAL)
[2021-10-20 13:33] VITALS: BP 101/37; PULSE 102
[2021-10-20 13:52] LABS: COLLECTION METHOD CLEAN CATCH
[2021-10-20 14:01] LABS: PH 6 (5-8); SQUAMOUS EPITHELIAL 0-2 /hpf (0-10); URINE APPEARANCE Clear (CLEAR/HAZY); URINE BACTERIA None Seen /hpf (NONE SEEN); URINE BILIRUBIN Negative (NEGATIVE); URINE BLOOD Negative (NEGATIVE); URINE COLOR Straw (YELLOW); URINE GLUCOSE Negative (NEGATIVE); URINE KETONE Negative (NEGATIVE); URINE LEUKOCYTE ESTERASE Negative (NEGATIVE); URINE NITRATE Negative (NEGATIVE); URINE PROTEIN(semi-quant) Negative (NEGATIVE); URINE RBC None Seen /hpf (0-2); URINE UROBILINOGEN Negative (NEGATIVE)
== END 2021-10-20 13:47 | disposition home or self-care (01) ==
LOC: COL.ER 11:45
PROVIDERS: Emergency Medicine
DX: O98.513 Other viral diseases complicating pregnancy, third trimester (principal); U07.1 COVID-19; O26.833 Pregnancy related renal disease, third trimester; Q60.0 Renal agenesis, unilateral; Z3A.28 28 weeks gestation of pregnancy
CPT/HCPCS: J7030

== ENCOUNTER 2021-11-04 17:02 | Outpatient (CLI) | payer MEDICAID ==
[~2021-11-04] VITALS: Ht 154.9 cm; Wt 49.4 kg
--- NOTE | 2021-11-04 17:05 | NUR ---
1705- Pt arrives on unit ambulatory. Complains of vaginal bleeding. 1711- Pt into bed, EFM and TOCO on and tracing. Pt states she was cooking dinner when she "peed her pants". She went to the bathroom and notice bright red bleeding when she wiped. She denies continued fluid but did have a scant amount of pink blood on underwear that she wore into the hospital. Pt denies UCs or cramping. +FM per Pt and felt by this RN while applying monitor. Assessments completed. 1725- SVE by this RN, amniotrace negative, cervix closed, no bloody discharge noted on exam glove. 1746- POC updated, plan to discharge home with precautions. Pt denies questions. EFM and TOCO off. Pt up to change into street clothes. 1800- Discharge paperwork given and explained. Pt ambulates off unit in stable condition.
[2021-11-04] MEDS ORDERED: ASPIRIN 81M81 MG/TA2 PO (17:20)
[2021-11-04 17:46] VITALS: BP 103/57; PULSE 68; TEMP 98.2
== END 2021-11-04 18:00 | disposition home or self-care (01) ==
LOC: LDRO 17:02
DX: Z34.90 Encounter for supervision of normal pregnancy, unspecified, unspecified trimester (principal); Z3A.00 Weeks of gestation of pregnancy not specified

== ENCOUNTER 2021-11-16 18:38 | Outpatient (CLI) | payer MEDICAID ==
[~2021-11-16] VITALS: Ht 154.9 cm; Wt 46.8 kg
[~2021-11-16 18:38] MED LIST changes: +ASPIRIN 81M81 MG/TA2 PO
--- NOTE | 2021-11-16 18:51 | NUR ---
to unit for assessment of R sided and lower abd pain, accompanied by significant other. Oriented to room, monitor plan of care.
[2021-11-16 19:00] VITALS: BP 111/57; PULSE 97
[2021-11-16 19:48] LABS: COLLECTION METHOD CLEAN CATCH
[2021-11-16 19:56] LABS: BASO # 0.1 K/mm3 (0.0-0.2); BASO % 0.3 % (0.0-2.0); EOS % 0.3 % (0.0-4.0); GRAN # 12.7 K/mm3 (1.4-6.5); GRAN % 83.1 % (42.2-75.2); HEMOGLOBIN 11.5 g/dl (12.5-16.0); LYMPH # 1.1 K/mm3 (1.2-3.4); LYMPH % 7.2 % (20.0-51.0); MEAN CELL VOLUME 88 fl (80.0-100.0); MEAN CORPUSCULAR HEMOGLOBIN 30 pg (27-31); MEAN CORPUSCULAR HGB CONC 35 g/dl (33.0-37.0); MEAN PLATELET VOLUME 9.4 fl (7.4-10.4); MONO # 1.3 K/mm3 (0.1-0.6); MONO % 8.6 % (1.7-9.3); PLATELET COUNT 192 K/mm3 (130-400); RED BLOOD COUNT 3.78 M/mm3 (4.10-5.30); REDCELL DISTRIBUTION WIDTH-CV 13.6 % (11.5-14.5)
[2021-11-16 20:02] LABS: HEMATOCRIT 33.2 % (37.0-47.0)
[2021-11-16 20:08] LABS: PH 6 (5-8); SQUAMOUS EPITHELIAL 0-2 /hpf (0-10); URINE APPEARANCE Clear (CLEAR/HAZY); URINE BILIRUBIN Negative (NEGATIVE); URINE BLOOD Negative (NEGATIVE); URINE COLOR Yellow (YELLOW); URINE GLUCOSE Negative (NEGATIVE); URINE KETONE 2+ (NEGATIVE); URINE LEUKOCYTE ESTERASE Negative (NEGATIVE); URINE NITRATE Negative (NEGATIVE); URINE PROTEIN(semi-quant) Negative (NEGATIVE); URINE RBC 0-2 /hpf (0-2)
[2021-11-16 20:09] LABS: URINE BACTERIA None Seen /hpf (NONE SEEN)
[2021-11-16 20:14] LABS: ALBUMIN 2.7 gm/dL (3.5-5.0); BILIRUBIN,TOTAL 0.5 mg/dL (0.2-1.2); CALCIUM 8.9 mg/dL (8.4-10.2); CREATININE, serum 0.78 mg/dL (0.57-1.11); POTASSIUM 3.4 mmol/L (3.5-4.5); TOTAL PROTEIN 6.1 gm/dL (6.2-8.1)
== END 2021-11-16 21:40 | disposition home or self-care (01) ==
LOC: LDRO 18:38 → LDR 19:15 → LDRO 21:40
PROVIDERS: Obstetrics & Gynecology
DX: O21.9 Vomiting of pregnancy, unspecified (principal); O26.899 Other specified pregnancy related conditions, unspecified trimester; R10.9 Unspecified abdominal pain; Z3A.00 Weeks of gestation of pregnancy not specified
CPT/HCPCS: OP; J7120

== ENCOUNTER 2022-05-29 10:06 | Emergency (ER) | payer MEDICAID ==
[~2022-05-29] VITALS: Ht 152.4 cm; Wt 44.5 kg
[~2022-05-29 10:06] MED LIST changes: +CLEOCIN HC150 MG/CAP PO; +MOTRIN 800800 MG/TAB PO; +OXY IR5 MG PO
[2022-05-29 10:23] VITALS: TEMP 98.1
[2022-05-29 11:12] LABS: COLLECTION METHOD CLEAN CATCH
[2022-05-29 11:16] LABS: BASO % 0.3 % (0.0-2.0); EOS # 0.4 K/mm3 (0.0-0.7); EOS % 3.6 % (0.0-4.0); GRAN # 6.8 K/mm3 (1.4-6.5); GRAN % 70.5 % (42.2-75.2); HEMATOCRIT 37.2 % (37.0-47.0); HEMOGLOBIN 12.9 g/dl (12.5-16.0); LYMPH # 1.5 K/mm3 (1.2-3.4); LYMPH % 15.8 % (20.0-51.0); MEAN CELL VOLUME 83 fl (80.0-100.0); MEAN CORPUSCULAR HEMOGLOBIN 29 pg (27-31); MEAN CORPUSCULAR HGB CONC 35 g/dl (33.0-37.0); MEAN PLATELET VOLUME 9.9 fl (7.4-10.4); MONO # 0.9 K/mm3 (0.1-0.6); MONO % 9.6 % (1.7-9.3); PLATELET COUNT 215 K/mm3 (130-400); RED BLOOD COUNT 4.49 M/mm3 (4.10-5.30); REDCELL DISTRIBUTION WIDTH-CV 13.9 % (11.5-14.5)
[2022-05-29 11:37] LABS: ALBUMIN 3.9 gm/dL (3.5-5.0); BILIRUBIN,TOTAL 0.6 mg/dL (0.2-1.2); CALCIUM 9.4 mg/dL (8.4-10.2); CREATININE, serum 0.73 mg/dL (0.57-1.11); POTASSIUM 3.4 mmol/L (3.5-4.5); TOTAL PROTEIN 6.8 gm/dL (6.2-8.1)
[2022-05-29 11:41] LABS: SQUAMOUS EPITHELIAL 0-2 /hpf (0-10); URINE BACTERIA None Seen /hpf (NONE SEEN); URINE RBC 0-2 /hpf (0-2)
[2022-05-29 11:43] LABS: PH 6.5 (5.0-8.5); URINE APPEARANCE Clear (CLEAR/HAZY); URINE BLOOD Negative (NEGATIVE); URINE COLOR Yellow (YELLOW); URINE GLUCOSE Negative (NEGATIVE); URINE KETONE Negative (NEGATIVE); URINE NITRATE Negative (NEGATIVE); URINE PROTEIN(semi-quant) Negative (NEGATIVE); URINE UROBILINOGEN 0.2 E.U/dL (0.2-1.0)
[2022-05-29 14:16] VITALS: BP 105/66; PULSE 86
== END 2022-05-29 14:20 | disposition home or self-care (01) ==
LOC: COL.ER 10:06
PROVIDERS: Emergency Medicine
DX: N94.10 Unspecified dyspareunia (principal); Z20.822 Contact with and (suspected) exposure to COVID-19; Z32.02 Encounter for pregnancy test, result negative; Z28.310 Unvaccinated for COVID-19

== ENCOUNTER 2022-07-27 07:15 | Emergency (ER) | payer MEDICAID ==
[~2022-07-27] VITALS: Ht 152.4 cm; Wt 44.1 kg
[2022-07-27 07:23] VITALS: TEMP 97.6
[2022-07-27 08:25] LABS: COLLECTION METHOD CLEAN CATCH
[2022-07-27 08:35] LABS: EOS # 0.2 K/mm3 (0.0-0.7); EOS % 4.3 % (0.0-4.0); GRAN # 2.1 K/mm3 (1.4-6.5); GRAN % 49.5 % (42.2-75.2); HEMOGLOBIN 12.8 g/dl (12.5-16.0); LYMPH # 1.5 K/mm3 (1.2-3.4); LYMPH % 34.9 % (20.0-51.0); MEAN CELL VOLUME 83 fl (80.0-100.0); MEAN CORPUSCULAR HEMOGLOBIN 29 pg (27-31); MEAN CORPUSCULAR HGB CONC 35 g/dl (33.0-37.0); MEAN PLATELET VOLUME 9.4 fl (7.4-10.4); MONO # 0.4 K/mm3 (0.1-0.6); MONO % 10.1 % (1.7-9.3); PLATELET COUNT 176 K/mm3 (130-400)
[2022-07-27 08:40] LABS: MUCOUS Present (NOT PRESENT); URINE BACTERIA Many /hpf (NONE SEEN); URINE RBC 0-2 /hpf (0-2)
[2022-07-27 08:46] LABS: ALBUMIN 3.9 gm/dL (3.5-5.0); BILIRUBIN,TOTAL 0.4 mg/dL (0.2-1.2); CALCIUM 9.1 mg/dL (8.4-10.2); CREATININE, serum 0.85 mg/dL (0.57-1.11); TOTAL PROTEIN 6.7 gm/dL (6.2-8.1)
[2022-07-27 08:57] LABS: HEMATOCRIT 36.5 % (37.0-47.0)
[2022-07-27 09:04] LABS: URINE APPEARANCE Hazy (CLEAR/HAZY); URINE COLOR Yellow (YELLOW); URINE GLUCOSE Negative (NEGATIVE); URINE KETONE Negative (NEGATIVE); URINE PROTEIN(semi-quant) Negative (NEGATIVE); URINE UROBILINOGEN 0.2 E.U/dL (0.2-1.0)
[2022-07-27 09:05] LABS: URINE BLOOD Negative (NEGATIVE); URINE NITRATE Positive (NEGATIVE)
[2022-07-27 11:29] VITALS: BP 104/52; PULSE 67
[2022-07-29] MEDS ORDERED: MACROBID 1100 MG/CAP PO (14:21)
== END 2022-07-27 11:35 | disposition home or self-care (01) ==
LOC: COL.ER 07:15
PROVIDERS: Personal Emergency Response Attendant
DX: R10.2 Pelvic and perineal pain (principal); Z32.02 Encounter for pregnancy test, result negative; Z28.310 Unvaccinated for COVID-19
CPT/HCPCS: J2270; J2405; J7030; Q9967

== ENCOUNTER 2023-06-26 20:30 | Outpatient (CLI) | payer MEDICAID ==
[~2023-06-26] VITALS: Ht 152.4 cm; Wt 42.7 kg
[~2023-06-26 20:30] MED LIST changes: +DOXYCYCLINE 10100 MG PO; +PREDNISONE50 MG PO; +PRENATAL; +PROAIR HFA0.09 MG/AC IH; +PROMETRIUM100 MG PO; +ZITHROMAX Z PA250 MG PO
--- NOTE | 2023-06-26 20:35 | NUR ---
Ambulatory to unit for assessment. oriented to room, monitor, plan of care. Pt reports "I have pain that starts in my back and radiates around to the front" Pt denies vaginal bleeding, LOF. Pt reports lots of movement.. UA obtained on admission.
[2023-06-26 20:40] VITALS: BP 104/59; PULSE 80; TEMP 98.3
[2023-06-26 20:58] LABS: COLLECTION METHOD CLEAN CATCH
[2023-06-26 21:16] LABS: TRICYCLIC ANTIDEPRESS URINE NEGATIVE; URINE APPEARANCE Clear (CLEAR/HAZY); URINE BLOOD Negative (NEGATIVE); URINE COLOR Yellow (YELLOW); URINE GLUCOSE Negative (NEGATIVE); URINE KETONE 2+ (NEGATIVE); URINE NITRATE Negative (NEGATIVE); URINE PROTEIN(semi-quant) Negative (NEGATIVE); URINE UROBILINOGEN 0.2 E.U/dL (0.2-1.0)
[2023-06-26 21:17] LABS: SQUAMOUS EPITHELIAL 0-2 /hpf (0-10); URINE WBC 0-2 /hpf (0-2)
--- NOTE | 2023-06-26 21:25 | NUR ---
Pt relaxed, testing on phone.
--- NOTE | 2023-06-26 22:15 | NUR ---
Discharge instructions increase fluid intake, expect some aches and pains at the end of the day, may take tylenol for discomfort, a belly band may help. Pt states "I drink alot of fluids. I already have a belly band> i wear it to work." Given "Discomforts of " hand out. Ambulatory off unit.
== END 2023-06-26 22:15 | disposition home or self-care (01) ==
LOC: LDRO 20:30 → LDR 21:02 → LDRO 22:15
PROVIDERS: Obstetrics & Gynecology
DX: O99.891 Other specified diseases and conditions complicating pregnancy (principal); M54.50 Low back pain, unspecified; R10.9 Unspecified abdominal pain; Z3A.24 24 weeks gestation of pregnancy
CPT/HCPCS: OP

== ENCOUNTER 2023-07-18 13:41 | Emergency (ER) | payer MEDICAID ==
[~2023-07-18] VITALS: Ht 152.4 cm; Wt 48.6 kg
[2023-07-18 13:45] VITALS: TEMP 97.9
[2023-07-18 14:38] LABS: STREP SCREEN NEGATIVE
[2023-07-18] MEDS ORDERED: CEFTIN 250250 MG/TAB PO (15:13)
[2023-07-18] MEDS ORDERED: PREDNISONE20 MG PO (15:13)
[2023-07-18] MEDS ORDERED: ZOFRAN ODT4 MG PO (15:13)
[2023-07-18 15:30] VITALS: BP 95/53; PULSE 77
== END 2023-07-18 15:45 | disposition home or self-care (01) ==
LOC: COL.ER 13:41
PROVIDERS: Physician Assistant
DX: O99.512 Diseases of the respiratory system complicating pregnancy, second trimester (principal); J06.9 Acute upper respiratory infection, unspecified; J45.909 Unspecified asthma, uncomplicated; O26.892 Other specified pregnancy related conditions, second trimester; R11.0 Nausea; Z79.899 Other long term (current) drug therapy; Z3A.27 27 weeks gestation of pregnancy; Z88.0 Allergy status to penicillin

== ENCOUNTER 2023-08-24 12:27 | Outpatient (CLI) | payer MEDICAID ==
[~2023-08-24] VITALS: Ht 152.4 cm; Wt 50.9 kg
[~2023-08-24 12:27] MED LIST changes: +ZOFRAN ODT4 MG PO
[2023-08-24] MEDS ORDERED: ASPIRIN 81M81 MG/TA2 PO (12:52)
[2023-08-24 13:00] VITALS: BP 102/58; PULSE 85; TEMP 98
== END 2023-08-24 13:40 | disposition home or self-care (01) ==
LOC: LDRO 12:27
DX: Z34.93 Encounter for supervision of normal pregnancy, unspecified, third trimester (principal); Z3A.30 30 weeks gestation of pregnancy

== ENCOUNTER 2023-09-26 18:40 | Outpatient (CLI) | payer SELFPAY ==
[~2023-09-26] VITALS: Ht 152.4 cm; Wt 55.0 kg
--- NOTE | 2023-09-26 18:50 | NUR ---
PATIENT ARRIVED TO UNIT VIA WHEELCHAIR. PATIENT STATES SHE HAS INCREASE IN PELVIC PAIN, AND CRAMPING. DENIES LEAKING OF FLUID, VAGINAL BLEEDING. PATIENT CHANGED INTO HOSPITAL GOWN. EFMX2.
[2023-09-26 19:30] VITALS: BP 130/76; PULSE 101; TEMP 97.9
[2023-09-26 20:11] VITALS: BP 126/86; PULSE 85
--- NOTE | 2023-09-26 20:25 | NUR ---
PATIENT EDUCATED ON STAYING WELL HYDRATED, MONITORING CONTRACTIONS, KEEPING SCHEDULED APPOINTMENTS. PATIENT VERBALIZES UNDERSTANDING. QUESTIONS INVITED AND ANSWERED. PATIENT AND SPOUSE AMBULATORY OFF UNIT.
== END 2023-09-26 20:25 | disposition home or self-care (01) ==
LOC: LDRO 18:40
DX: Z34.93 Encounter for supervision of normal pregnancy, unspecified, third trimester (principal); Z3A.37 37 weeks gestation of pregnancy

== ENCOUNTER 2023-10-01 21:39 | Outpatient (CLI) | payer SELFPAY ==
[~2023-10-01] VITALS: Ht 154.9 cm; Wt 55.7 kg
--- NOTE | 2023-10-01 21:50 | NUR ---
@ 38+3 PRESENTS TO OBT VIA WHEELCHAIR ACCOMPANIED BY SPOUSE AND STAFF MEMBER. PT COMPLAINT OF RIGHT SIDED LOWER EXTREMITY SWELLING WITH NUMBMESS, PINS AND NEEDLE SENSATIONS, & PAIN UP TO HIP LEVEL. PT STATES PAIN STARTED AT ABOUT 2030. PT STATES SHE NOTICES SWELLING ON BLE, BUT WORSE ON THE RIGHT. PITTING EDEMA NOTED BILATERAL FOOT AND ANKLE. PITTING EDEMA CONTINUES ON RIGHT SIDE UP TO MID THIGH. PT STATES HER LEG IS PAINFUL TO THE TOUCH. PEDAL PULSES +2 BILATERALLY PER PALPATION. PT ENDORCES MOVEMENT, DENIES LOF/VAG BLEEDING. PT STATES THAT SHE HAS BEEN FEELING SOME CRAMPING IN HER BACK THAT IS IRREGULAR AND HAS BEEN OCCURING FOR THE LAST 1-2 WEEKS. REACTIVE NST OBTAINED. IRREGULAR CONTRACTIONS NOTED. SVE /-2.
[2023-10-01 22:40] VITALS: BP 118/62; PULSE 99; TEMP 98.4
--- NOTE | 2023-10-01 23:00 | NUR ---
PT AMBULATED TO 222 ACCOMPANIED BY RN. PT ORIENTED TO ROOM, PROVIDED WARM BLANKETS AND LIGHTS DIMMED TO FACILITATE REST.
[2023-10-02 02:00] VITALS: BP 110/61; PULSE 81; TEMP 98.2
[2023-10-02 05:49] VITALS: BP 105/64; PULSE 67; TEMP 98.2
[2023-10-02 09:00] VITALS: BP 108/58; PULSE 73; TEMP 98
--- NOTE | 2023-10-02 09:00 | NUR ---
DR. MCCAULEY CALLED SUPERVISOR PAINTING DEPARTMENT WITH [facility] TO D/C PATIENT HOME.
--- NOTE | 2023-10-02 09:49 | NUR ---
Initial visit attempt; Patient resting, Upholstery Sewer left card offering Spiritual Care at our hospital and God's blessings.
== END 2023-10-02 09:45 | disposition home or self-care (01) ==
LOC: LDRO 21:39 → LDR 22:05 → LDRO 22:05 → LDR 23:18 → OB 23:18 → LDRO 10-02 09:45 → OB 10-02 09:45 → EDSTATUS 10-02 12:31
DX: Z34.93 Encounter for supervision of normal pregnancy, unspecified, third trimester (principal); Z3A.38 38 weeks gestation of pregnancy
CPT/HCPCS: OP; G0378

== ENCOUNTER 2023-10-07 04:09 | Inpatient (IN) | payer SELFPAY ==
[2023-10-07] VITALS (40 sets, daily range): BP systolic 93–151; BP diastolic 51–81; PULSE 68–144; TEMP 97.8–98.6
[~2023-10-07] VITALS: Ht 152.4 cm; Wt 57.5 kg
[~2023-10-07 04:09] MED LIST changes: +ceFAZolin 1 G in Water For Injection,Sterile 10 ML IV SCH
--- NOTE | 2023-10-07 04:20 | NUR ---
G7L1 at 39 weeks and 2 days arrives to unit with complaint of spontaneous rupture of membranes. Pt reports large gush of clear fluid around 0350. Pt reports good movement and is having mild contractions every 5-10 minutes. Clean gown on. Oriented to room, call light within reach, bed in low and locked position. US and toco explained and applied. Admission assessment started. Vitals obtained. Amnitrace positive. SVE 5/100/-3 with BBOW. Moderate amount of fluid noted on chux pad beneath patient.
[2023-10-07] MEDS ORDERED: LR 1,000 ML IV SCH (04:45)
[2023-10-07] MEDS ORDERED: LR & Oxytocin 500 ML IV SCH (04:45)
[2023-10-07] MEDS ORDERED: ceFAZolin 2 G in Water For Injection,Sterile 20 ML IV ONE (04:45)
[2023-10-07 05:03] LABS: BASO # 0.1 K/mm3 (0.0-0.2); BASO % 0.5 % (0.0-2.0); EOS # 0.2 K/mm3 (0.0-0.7); EOS % 1.6 % (0.0-4.0); GRAN # 10.7 K/mm3 (1.4-6.5); GRAN % 72.4 % (42.2-75.2); HEMOGLOBIN 11.5 g/dl (12.5-16.0); LYMPH # 2.5 K/mm3 (1.2-3.4); LYMPH % 16.6 % (20.0-51.0); MEAN CELL VOLUME 84 fl (80.0-100.0); MEAN CORPUSCULAR HEMOGLOBIN 28 pg (27-31); MEAN CORPUSCULAR HGB CONC 33 g/dl (33.0-37.0); MEAN PLATELET VOLUME 9.7 fl (7.4-10.4); MONO # 1.2 K/mm3 (0.1-0.6); MONO % 8.4 % (1.7-9.3); PLATELET COUNT 252 K/mm3 (130-400); RED BLOOD COUNT 4.12 M/mm3 (4.10-5.30); REDCELL DISTRIBUTION WIDTH-CV 14.3 % (11.5-14.5)
[2023-10-07 05:12] LABS: HEMATOCRIT 34.5 % (37.0-47.0)
[2023-10-07] MEDS ORDERED: ROPivacaine PF 0.2% 200 ML IV ONE (05:19)
[2023-10-07 05:23] LABS: ALBUMIN 2.5 gm/dL (3.5-5.0); BILIRUBIN,TOTAL 0.3 mg/dL (0.2-1.2); CALCIUM 9.5 mg/dL (8.4-10.2); CREATININE, serum 0.88 mg/dL (0.57-1.11); POTASSIUM 3.7 mmol/L (3.5-4.5)
--- NOTE | 2023-10-07 05:28 | NUR ---
PT SITTING ON SIDE OF BED WITH SPOUSE FOR SUPPORT. BP CUFF & PULSE OX PLACED. 0521: ABDIFATAH RYDER AT BS 0525: TIME OUT COMPLETED 0528: SINGLE SHOT 0529: EPIDURAL CATH PLACED 0536: EPIDURAL PUMP STARTED BY MONSERRAT. PT EDUCATED OF FALL RISK. STRICT BEDREST. PT VERBALIZED UNDERSTANDING & DENIES QUESTIONS/CONCERNS AT THIS TIME.
[2023-10-07] MEDS ORDERED: diphenhydrAMINE 25 MG CAP PO PRN (05:30)
[2023-10-07] MEDS ORDERED: diphenhydrAMINE 50 MG/ML 1 ML VIAL IV PRN (05:30)
[2023-10-07] MEDS ORDERED: Naloxone 0.4 MG/ML VIAL IV PRN ×2 (05:30→14:00)
[2023-10-07] MEDS ORDERED: Ondansetron 4 MG/2 ML VIAL IV PRN (05:30)
[2023-10-07] MEDS ORDERED: ePHEDrine 50 MG/10 ML VIAL IV PRN (05:30)
--- NOTE | 2023-10-07 11:06 | NUR ---
THIS RN IN ROOM FOR LATE DECELERATION. PITOCIN TURNED OFF, PT LEFT LATERAL, 02 ON, NO RESOLVE. DAIRY ASSOCIATE AT BEDSIDE, PT IN BING POSITION. DECEL RESOLVED. 1110 SVE 10/100/0. TOLERATED WELL. 1125 ROOM SET FOR DELIVERY. PRACTICE PUSH, PT READY FOR
--- NOTE | 2023-10-07 11:30 | NUR ---
PRACTICE PUSH COMPLETE. WAITING FOR DR. ALMEIDA. 1135 DR. ALMEIDA AT BEDSIDE. 1308 OF VIABLE MALE PER . PT TOLERATED WELL. NCX1 NOTED. INFANT PLACED ON MATERNAL ABDOMEN AND CARE ASSUMED BY NURSERY RN. 4TH DEGREE LACERATION NOTED. BEGINS REPAIRING. [address] ALMEIDA. PT TOLERATED WELL. PITOCIN BOLUS INFUSING PER PROTOCOL. DR. ALMEIDA CONTINUES REPAIRING LACERATION.
--- NOTE | 2023-10-07 13:40 | NUR ---
REPAIR COMPLETE. PT TOLERATED WELL. ROOM PUT BACK TOGETHER.
[2023-10-07] MEDS ORDERED: oxyCODONE 5 MG TAB PO PRN (14:00)
[2023-10-07] MEDS ORDERED: Ibuprofen 800 MG TAB PO SCH (14:00)
[2023-10-07] MEDS ORDERED: Magnes Hydrox (MOM) 80 MG/ML 30 ML CUP PO PRN (14:00)
[2023-10-07] MEDS ORDERED: Phenylephrine/Mineral Oil/Petrolatum 57 GM TUBE RC PRN (14:00)
[2023-10-07] MEDS ORDERED: Loratadine 10 MG TAB PO PRN (14:00)
[2023-10-07] MEDS ORDERED: Witch Hazel 50% Pads Bulk TUB TP PRN (14:00)
[2023-10-07] MEDS ORDERED: Mag/Al Hydrox/Simeth Susp 30 ML CUP PO PRN (14:00)
[2023-10-07] MEDS ORDERED: Acetaminophen 500 MG TAB PO SCH (14:00)
[2023-10-07] MEDS ORDERED: Measles/Mumps/Rubella Virus Vaccine Live w Diluent 0.5 ML VIAL SQ SCH (14:00)
[2023-10-07] MEDS ORDERED: Sennosides/Docusate 8.6-50 MG TAB PO SCH (17:00)
[2023-10-07] MEDS ORDERED: COLACE 100100 MG/CAP PO (17:45)
[2023-10-07] MEDS ORDERED: traZODone 50 MG TAB PO PRN (21:00)
[2023-10-08 02:00] VITALS: BP 103/60; PULSE 76; TEMP 97.7
[2023-10-08 09:18] VITALS: BP 106/70; PULSE 67; TEMP 97.3
--- NOTE | 2023-10-08 10:17 | NUR ---
Initial visit; Parents thanked Compressed Gases Tester for offering congratulations and God's blessings for the of their son. Compressed Gases Tester thanked family for choosing [facility].
[2023-10-08 16:20] VITALS: BP 118/53; PULSE 79; TEMP 98
== END 2023-10-08 17:45 | disposition home or self-care (01) | DRG 768 ==
LOC: LDRO 04:09 → LDR 04:47 → OB 13:49
PROVIDERS: Obstetrics & Gynecology; ADMIT Obstetrics & Gynecology
PROC: 10E0XZZ Delivery of Products of Conception, External Approach (ICD-10-PCS; principal; 2023-10-07)
PROC: 0DQP0ZZ Repair Rectum, Open Approach (ICD-10-PCS; 2023-10-07)
DX: O99.824 Streptococcus B carrier state complicating childbirth (principal); Z37.0 Single live birth; O26.833 Pregnancy related renal disease, third trimester; N28.9 Disorder of kidney and ureter, unspecified; O99.52 Diseases of the respiratory system complicating childbirth; J45.909 Unspecified asthma, uncomplicated; O70.3 Fourth degree perineal laceration during delivery; O69.81X0 Labor and delivery complicated by cord around neck, without compression, not applicable or unspecified; Z3A.39 39 weeks gestation of pregnancy; Z86.16 Personal history of COVID-19
CPT/HCPCS: J0690; J2590; J2795; J7120

== ENCOUNTER 2024-01-07 15:04 | Emergency (ER) | payer MEDICAID ==
[~2024-01-07] VITALS: Ht 152.4 cm; Wt 45.5 kg
[~2024-01-07 15:04] MED LIST changes: +COLACE 100100 MG/CAP PO; -ceFAZolin 1 G in Water For Injection,Sterile 10 ML IV SCH
[2024-01-07 15:14] VITALS: BP 102/68; TEMP 98.1
[2024-01-07 15:40] LABS: COLLECTION METHOD CLEAN CATCH
[2024-01-07 15:53] LABS: URINE APPEARANCE CLEAR (CLEAR/HAZY); URINE BLOOD NEGATIVE (NEGATIVE); URINE COLOR YELLOW (YELLOW); URINE GLUCOSE NEGATIVE (NEGATIVE); URINE KETONE NEGATIVE (NEGATIVE); URINE NITRATE NEGATIVE (NEGATIVE); URINE PROTEIN(semi-quant) NEGATIVE (NEGATIVE); URINE UROBILINOGEN 0.2 E.U/dL (0.2-1.0)
[2024-01-07] MEDS ORDERED: CEPHALEXIN500 M1 PO (16:38)
[2024-01-07] MEDS ORDERED: cefTRIAXone 1 G,Lidocaine PF 1% 2.1 ML IM ONE (16:45)
[2024-01-07 16:46] VITALS: PULSE 96
== END 2024-01-07 16:47 | disposition home or self-care (01) ==
LOC: COL.ER 15:04
PROVIDERS: Physician Assistant
DX: N39.0 Urinary tract infection, site not specified (principal); Z88.0 Allergy status to penicillin
CPT/HCPCS: J0696